=== PATIENT | female | born 1985 | race Caucasian/White ===

== ENCOUNTER 2021-08-03 14:40 | Emergency (ER) | payer SELFPAY ==
[~2021-08-03] VITALS: Ht 160 cm; Wt 61.0 kg
[2021-08-03 15:20] LABS: BASOPHILS % (AUTO) 0.6 % (0-1); EOSINOPHILS # (AUTO) 0.2 X10'3 (0-0.9); EOSINOPHILS % (AUTO) 2.3 % (0-6); HEMATOCRIT 44.4 % (35.0-45.0); LYMPHOCYTES # (AUTO) 3.3 X10'3 (1.1-4.8); MEAN CORPUSCULAR HEMOGLOBIN 32.9 PG (27.0-31.0); MEAN CORPUSCULAR HGB CONC 33.9 g/dL (33.0-36.5); MEAN CORPUSCULAR VOLUME 97.2 FL (78-98); MEAN PLATELET VOLUME 9.2 FL (7.4-10.4); MONOCYTES # (AUTO) 0.6 X10'3 (0-0.9); MONOCYTES % (AUTO) 7.4 % (2-12); NEUTROPHILS # (AUTO) 3.6 X10'3 (1.8-7.7); NEUTROPHILS % (AUTO) 46.7 % (42-75); PLATELET COUNT 293 X10'3 (140-440); RED BLOOD COUNT 4.57 X10'6 (4.20-5.60); WHITE BLOOD COUNT 7.7 X10'3 (4.5-11.0)
[2021-08-03 15:29] LABS: ALANINE AMINOTRANSFERASE 144 U/L (12-78); ALBUMIN 4.1 G/DL (3.4-5.0); ALKALINE PHOSPHATASE 111 IU/L (46-116); ANION GAP 13 (8-16); ASPARTATE AMINO TRANSFERASE 209 U/L (10-37); BILIRUBIN,TOTAL 0.3 MG/DL (0.1-1.0); BLOOD UREA NITROGEN 5 MG/DL (7-18); BUN/CREATININE RATIO 7.6 (6.6-38.0); CALCIUM 8.3 MG/DL (8.5-10.1); CHLORIDE 103 MMOL/L (99-107); CREATININE 0.66 MG/DL (0.40-0.90); GLUCOSE 101 MG/DL (70-104); SODIUM 142 MMOL/L (135-145); TOTAL CARBON DIOXIDE 26.1 MMOL/L (24-32); TOTAL PROTEIN 8.3 G/DL (6.4-8.2); eGFR > 90 ML/MIN
--- NOTE | 2021-08-03 15:35 | NUR ---
pt grabbed her belongings and phone, "I am leaving...I need to go home and go to work on Thursday", security on standby, pt is now cooperative and gave belongs back to me, she is aware of plan for medical clearance to be evaluated by [facility] and she is on 72 hour hold. Pt also aware UA needed, she is on period and first sample was contaminated, gave pt pitcher of water to drink
[2021-08-03] MEDS ORDERED: LORazepam 1 MG tablet PO ONE (15:40)
[2021-08-03 15:42] LABS: ETHANOL 0.334 GM/DL (0.0-0.010); POTASSIUM 3.4 MMOL/L (3.5-5.1)
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
--- NOTE | 2021-08-03 15:56 | NUR ---
pt walked out of room, picked up another pts belongings and threatened to leave again, security at bedside, pt is refusing to take [employer] shields aware
--- NOTE | 2021-08-03 17:15 | NUR ---
PT ATTEMPTING TO LEAVE AGAIN, ABLE TO REDIRECT PT BACK TO ROOM. SHE ALSO HAS TALKED WITH HER MOM ON THE PHONE BUT STARTED YELLING LOUDLY. PT COOPERATIVE WITH GIVING PHONE BACK TO ME
[2021-08-03 20:19] LABS: URINE HCG NEGATIVE (NEG)
[2021-08-03 20:21] LABS: CLARITY,URINE CLOUDY (Clear); COLOR,URINE RED (Yellow)
[2021-08-03 20:29] LABS: URINE AMPHETAMINE SCREEN NEGATIVE (Neg); URINE BARBITUATE SCREEN NEGATIVE (Neg); URINE BENZODIAZEPINES SCREEN NEGATIVE (Neg); URINE CANNABINOID SCREEN NEGATIVE (Neg); URINE COCAINE SCREEN NEGATIVE (Neg); URINE METHADONE SCREEN NEGATIVE (Neg); URINE OPIATE SCREEN NEGATIVE (Neg); URINE PHENCYCLIDINE SCREEN NEGATIVE (Neg)
[2021-08-03 20:35] LABS: UA COLLECTION TYPE CLN CATCH MIDSTREAM
[2021-08-03 20:39] LABS: WBC,URINE 0-4 /HPF (0-4)
[2021-08-03 20:40] LABS: BACTERIA,URINE FEW /HPF (Neg); MUCUS STRANDS MODERATE /LPF (Neg); RBC,URINE TNTC /HPF (0-2); SQUAMOUS EPITHELIAL CELL,UR FEW /LPF (FEW)
[2021-08-04 05:16] VITALS: BP 111/60
--- NOTE | 2021-08-04 05:22 | NUR ---
pt resting with eyes closed. chest even rise and fall bilaterally.
--- NOTE | 2021-08-04 07:56 | NUR ---
pt caught snooping around nurses station looking for belongings assisted back to room
== END 2021-08-04 12:21 | disposition home or self-care (01) ==
LOC: ER 14:40
DX: R45.851 Suicidal ideations (principal); Z20.822 Contact with and (suspected) exposure to COVID-19; R45.1 Restlessness and agitation; F32.A Depression, unspecified; F12.90 Cannabis use, unspecified, uncomplicated; Z98.890 Other specified postprocedural states
CPT/HCPCS: 36415; 80053; 80305; 80320; 81001; 81025; 84443; 85025; 87635; 99285; C9803